=== PATIENT | male | born 1960 | race Hispanic/Latino ===

== ENCOUNTER → 2017-08-30 | Outpatient (CLI) | payer OTHER | END | disposition home or self-care (01) | LOC: RAH 08:15 | PROVIDERS: ATTEND Nurse Practitioner Family | DX: R06.00 Dyspnea, unspecified (principal); E78.2 Mixed hyperlipidemia; F41.9 Anxiety disorder, unspecified; E11.9 Type 2 diabetes mellitus without complications | CPT/HCPCS: 71046 ==

== ENCOUNTER 2019-10-03 00:05 | Inpatient (IN) | payer OTHER, BC ==
[~2019-10-03] VITALS: Ht 165.1 cm; Wt 83.0 kg
[2019-10-03] MEDS ORDERED: CEFTRIAXONE SODIUM 1 GM ONE (01:04)
[2019-10-03] MEDS ORDERED: LEVOFLOXACIN 750 MG/D5W 150 ML 150 ML ONE (01:04)
[2019-10-03 01:05] LABS: BASOPHILS % (AUTO) 0.2 % (0.0-5.0); EOSINOPHILS % (AUTO) 2.8 % (0.0-8.0); HEMATOCRIT 41.2 % (42-54); LYMPHOCYTES % (AUTO) 11.5 % (21.0-51.0); MEAN CORPUSCULAR HEMOGLOBIN 27.5 pg (27.0-33.0); MEAN CORPUSCULAR HGB CONC 33.7 g/dL (32.0-36.0); MEAN CORPUSCULAR VOLUME 81.4 fL (79-99); MONOCYTES % (AUTO) 8.4 % (3.0-13.0); NEUTROPHILS % (AUTO) 76.6 % (40.0-77.0); PLATELET COUNT (AUTO) 205 K/uL (130-400); RED BLOOD CELL COUNT(AUTO) 5.06 MIL/uL (4.50-6.20); WHITE BLOOD COUNT (AUTO) 6.2 K/uL (4.8-10.8)
[2019-10-03] MEDS ORDERED: SODIUM CHLORIDE 0.9% 100 ML IV ONE (01:05)
[2019-10-03] MEDS ORDERED: ACETAMINOPHEN 325 MG TAB ONE (01:08)
[2019-10-03 01:09] LABS: POTASSIUM 3.2 mmol/L (3.5-5.1)
[2019-10-03 01:13] LABS: ALBUMIN 3.5 g/dL (3.5-5.0); BILIRUBIN,TOTAL 0.3 mg/dL (0.2-1.0); TOTAL PROTEIN, SERUM 7.1 g/dL (6.0-8.3)
[2019-10-03] MEDS ORDERED: SODIUM CHLORIDE 0.9% 1000ML 1,000 ML IV SCH (03:17)
[2019-10-03] MEDS ORDERED: AZITHROMYCIN 500MG+NS 250ML 250 ML IV SCH (03:30)
[2019-10-03] MEDS: DOXYCYCLINE 100MG+NS 250ML 250 ML IV SCH ×2 (03:30→16:16)
[2019-10-03] MEDS ORDERED: ONDANSETRON HCL 4 MG/2 ML VIAL IV PRN (03:30)
[2019-10-03] MEDS ORDERED: ERGOCALCIFEROL (VITAMIN D2) 50,000 UNIT CAPSULE PO SCH (03:30)
[2019-10-03 03:37] LABS: APPEARANCE,URINE Clear (CLEAR); BILIRUBIN,URINE Negative (NEGATIVE); COLOR,URINE Yellow (YELLOW); GLUCOSE, URINE (UA) Negative (NEGATIVE); KETONES,URINE Negative (NEGATIVE); LEUKOCYTE ESTERASE ,URINE Negative (NEGATIVE); NITRATE,URINE Negative (NEGATIVE); OCCULT BLOOD,URINE Negative (NEGATIVE); PH,URINE 5.5 (5.0-8.0); PROTEIN,URINE Negative (NEGATIVE)
[2019-10-03] MEDS ORDERED: METHYLPREDNISOLONE SOD SUCC 40MG/ML 1ML ONE (04:09)
[2019-10-03] MEDS ORDERED: ACETYLCYSTEINE 600 MG CAPSULE ONE (04:10)
[2019-10-03] MEDS ORDERED: DOXYCYCLINE 100MG+NS 250ML 250 ML IV ONE (04:10)
[2019-10-03] MEDS ORDERED: AZITHROMYCIN 500MG+NS 250ML 250 ML IV ONE (04:10)
[2019-10-03] MEDS ORDERED: ERGOCALCIFEROL (VITAMIN D2) 50,000 UNIT CAPSULE ONE (04:10)
[2019-10-03] MEDS: POTASSIUM CHLORIDE 20 MEQ ERTAB PO SCH (04:45)
[2019-10-03] MEDS ORDERED: POTASSIUM CHLORIDE 20 MEQ ERTAB PO ONE (04:54)
[2019-10-03] MEDS ORDERED: ONDANSETRON HCL 4 MG/2 ML VIAL ONE (05:00)
[2019-10-03 05:20] VITALS: BP 129/84
[2019-10-03] MEDS ORDERED: CALCIUM CARBON 500MG CHEW TAB PO PRN (05:30)
[2019-10-03 08:00] VITALS: BP 134/76
[2019-10-03] MEDS ORDERED: METHYLPREDNISOLONE SOD SUCC 40MG/ML 1ML IVP SCH (09:00)
[2019-10-03] MEDS: ACETYLCYSTEINE 600 MG CAPSULE PO SCH ×2 (09:00→20:50)
[2019-10-03] MEDS ORDERED: DULO60CA64 PO (09:23)
[2019-10-03] MEDS ORDERED: TRAZ-185 PO (09:23)
[2019-10-03] MEDS ORDERED: ASCO500T10 PO (09:23)
[2019-10-03] MEDS ORDERED: GABA-529 PO (09:23)
[2019-10-03] MEDS ORDERED: DOCU-116 PO (09:23)
[2019-10-03] MEDS ORDERED: PSYL426P4 PO (09:23)
[2019-10-03] MEDS ORDERED: POLY17PO4 PO (09:23)
[2019-10-03] MEDS ORDERED: VITA400T9 PO (09:23)
[2019-10-03] MEDS ORDERED: OMEP20CA12 PO (09:23)
[2019-10-03] MEDS: ZINC SULFATE 220 CAPSULE PO SCH (09:37)
[2019-10-03] MEDS: FAMOTIDINE 20MG TAB 20 MG TAB PO SCH ×2 (09:37→20:50)
[2019-10-03] MEDS: ASCORBIC ACID 500 MG TAB PO SCH (09:37)
[2019-10-03] MEDS: ENOXAPARIN SODIUM 40 MG/0.4 ML SYRINGE SQ SCH (09:38)
[2019-10-03] MEDS: ACETAMINOPHEN 325 MG TAB PO PRN ×2 (10:24→20:50)
[2019-10-03 10:53] LABS: CRP QUANTITATIVE 34.6 mg/L (0.00-9.0)
--- NOTE | 2019-10-03 11:39 | NUR ---
CHART CHECK COMPLETED. Pt IS A 59 Y.O. MALE ADMITTED SECONDARY TO DYSPNEA AND COVID+. Pt HAS A PAST MEDICAL HISTORY SIGNIFICANT FOR DM, HTN, HLD. Pt CURRENTLY ON REGULAR TEXTURE,THIN LIQUID DIET (CONSISTENT CARB). PLEASE REQUEST FORMAL SKILLED SPEECH/SWALLOW EVALUATION IF Pt PRESENTS WITH +S/S OF ASPIRATION SUCH COUGH RESPONSE, THROAT CLEAR, OR WET VOCAL QUALITY DURING P.O. Addendum: 10/03/19 at 1144 by MG VENEGAS, [facility] Amended: Links added.
[2019-10-03 12:06] VITALS: BP 121/64
[2019-10-03 14:30] VITALS: BP 129/78
--- NOTE | 2019-10-03 17:59 | NUR ---
cm note pt lives with spouse, independent with adls/ambulation, no dme. dc plan is back to home at ok. no dc needs. Addendum: 10/03/19 at 1807 by FABBY BLUM CM Amended: Links added.
[2019-10-03] MEDS ORDERED: DEXTROSE 50%-WATER 50 ML DISP.SYRIN IV PRN (18:45)
[2019-10-03] MEDS ORDERED: GLUCAGON 1MG KIT 1 MG ML IM PRN (18:45)
[2019-10-03 20:00] VITALS: BP 125/79
[2019-10-03] MEDS: INSULIN HUMULIN R 100 UNIT/ML 3ML SQ SCH (20:34)
[2019-10-04] VITALS: BP 126/69
[2019-10-04] MEDS: DOXYCYCLINE 100MG+NS 250ML 250 ML IV SCH ×2 (03:53→15:23)
[2019-10-04] MEDS: POTASSIUM CHLORIDE 20 MEQ ERTAB PO SCH (03:53)
[2019-10-04] MEDS: ACETAMINOPHEN 325 MG TAB PO PRN ×3 (03:54→15:52)
[2019-10-04 03:56] LABS: BASOPHILS % (AUTO) 0.1 % (0.0-5.0); EOSINOPHILS % (AUTO) 1.9 % (0.0-8.0); HEMATOCRIT 42.5 % (42-54); LYMPHOCYTES % (AUTO) 8.4 % (21.0-51.0); MEAN CORPUSCULAR HEMOGLOBIN 26.8 pg (27.0-33.0); MEAN CORPUSCULAR HGB CONC 32.7 g/dL (32.0-36.0); MONOCYTES % (AUTO) 8.7 % (3.0-13.0); NEUTROPHILS % (AUTO) 80.6 % (40.0-77.0); PLATELET COUNT (AUTO) 229 K/uL (130-400); RED BLOOD CELL COUNT(AUTO) 5.18 MIL/uL (4.50-6.20)
[2019-10-04 04:00] VITALS: BP 133/83
[2019-10-04 04:05] LABS: ALANINE AMINOTRANSFERASE 25 U/L (12-78); ALBUMIN 3.6 g/dL (3.5-5.0); ASPARTATE AMINOTRANSFERASE 15 U/L (10-37); BILIRUBIN,TOTAL 0.3 mg/dL (0.2-1.0); CARBON DIOXIDE 30 mmol/L (21-32); CHLORIDE 102 mmol/L (101-111); GLOMERULAR FILTR. RATE CALC 81 mL/min (>60); GLUCOSE,RANDOM 144 mg/dL (70-105); LACTATE DEHYDROGENASE 166 U/L (81-234); POTASSIUM 4.4 mmol/L (3.5-5.1); SODIUM SERUM 137 mmol/L (136-145); TOTAL PROTEIN, SERUM 7.5 g/dL (6.0-8.3); UREA NITROGEN, BLOOD 20 mg/dL (7-18)
[2019-10-04] MEDS: INSULIN HUMULIN R 100 UNIT/ML 3ML SQ SCH ×4 (05:28→20:45)
[2019-10-04] MEDS ORDERED: PHARMACY COMMUNICATION MISC SCH (08:15)
[2019-10-04] MEDS: ASCORBIC ACID 500 MG TAB PO SCH (08:54)
[2019-10-04] MEDS: ZINC SULFATE 220 CAPSULE PO SCH (08:54)
[2019-10-04] MEDS: FAMOTIDINE 20MG TAB 20 MG TAB PO SCH (08:54)
[2019-10-04] MEDS: ENOXAPARIN SODIUM 40 MG/0.4 ML SYRINGE SQ SCH (08:56)
[2019-10-04] MEDS: AZITHROMYCIN 500MG+NS 250ML 250 ML IV SCH (08:57)
[2019-10-04 09:19] VITALS: BP 144/78
[2019-10-04] MEDS: ACETYLCYSTEINE 20% 200MG/ML 4ML VIAL PO SCH ×2 (09:19→20:59)
[2019-10-04] MEDS ORDERED: POLYETHYLENE GLYCOL 3350 17 GM POWD.PACK PO PRN (09:30)
[2019-10-04 12:32] VITALS: BP 137/78
[2019-10-04] MEDS ORDERED: GABAPENTIN 300 MG CAPSULE PO PRN (14:00)
[2019-10-04] MEDS ORDERED: ZINC220C6 PO (15:45)
[2019-10-04] MEDS ORDERED: ASCO500T20 PO (15:45)
[2019-10-04] MEDS ORDERED: AZIT250T9 PO (15:50)
[2019-10-04] MEDS ORDERED: DEXA6TAB7 PO (15:50)
--- NOTE | 2019-10-04 17:27 | NUR ---
Patient's discharge postponed due to patient being febrile. Primary team made aware, blood cultures ordered. Patient given IV doxy at 1730. Will continue to monitor
[2019-10-04 18:37] VITALS: BP 126/74
[2019-10-04] MEDS: DULOXETINE HCL 30 MG CAP PO SCH (20:59)
[2019-10-04 21:07] VITALS: BP 114/66
[2019-10-05] VITALS (7 sets, daily range): BP systolic 118–141; BP diastolic 52–92
[2019-10-05] MEDS: DOXYCYCLINE 100MG+NS 250ML 250 ML IV SCH ×2 (02:32→14:50)
[2019-10-05 04:30] LABS: BASOPHILS % (AUTO) 0.1 % (0.0-5.0); HEMATOCRIT 40.8 % (42-54); LYMPHOCYTES % (AUTO) 7.2 % (21.0-51.0); MEAN CORPUSCULAR HEMOGLOBIN 27.1 pg (27.0-33.0); MEAN CORPUSCULAR HGB CONC 33.3 g/dL (32.0-36.0); MEAN CORPUSCULAR VOLUME 81.4 fL (79-99); MONOCYTES % (AUTO) 7.5 % (3.0-13.0); NEUTROPHILS % (AUTO) 84.6 % (40.0-77.0); PLATELET COUNT (AUTO) 205 K/uL (130-400); RED BLOOD CELL COUNT(AUTO) 5.01 MIL/uL (4.50-6.20); RED CELL DISTRIBUTION WIDTH 12.9 % (11.0-15.5); WHITE BLOOD COUNT (AUTO) 7.7 K/uL (4.8-10.8)
[2019-10-05 04:50] LABS: ALBUMIN 3.4 g/dL (3.5-5.0); BILIRUBIN,TOTAL 0.5 mg/dL (0.2-1.0); POTASSIUM 3.6 mmol/L (3.5-5.1); TOTAL PROTEIN, SERUM 7.4 g/dL (6.0-8.3)
[2019-10-05] MEDS: INSULIN HUMULIN R 100 UNIT/ML 3ML SQ SCH ×5 (05:52→20:41)
--- NOTE | 2019-10-05 06:26 | NUR ---
Pts temp reassessed throughout the night; @2107 -101.6, @0056 - 99.6 and @0400 - 99.3; pt stated he feels better than he did yesterday and he was able to get rest. Bambi RN
[2019-10-05] MEDS: ACETYLCYSTEINE 20% 200MG/ML 4ML VIAL PO SCH ×2 (08:31→20:41)
[2019-10-05] MEDS: PANTOPRAZOLE SODIUM 40 MG TABLET.DR PO SCH (08:31)
[2019-10-05] MEDS: DULOXETINE HCL 30 MG CAP PO SCH ×2 (08:31→20:41)
[2019-10-05] MEDS: AZITHROMYCIN 500MG+NS 250ML 250 ML IV SCH (08:31)
[2019-10-05] MEDS: ASCORBIC ACID 500 MG TAB PO SCH (08:31)
[2019-10-05] MEDS: ZINC SULFATE 220 CAPSULE PO SCH (08:31)
[2019-10-05] MEDS: ENOXAPARIN SODIUM 40 MG/0.4 ML SYRINGE SQ SCH (08:46)
[2019-10-05] MEDS: ACETAMINOPHEN 325 MG TAB PO PRN ×2 (08:48→21:00)
[2019-10-05] MEDS ORDERED: TRAMADOL HCL 50 MG TABLET PO PRN (12:30)
[2019-10-05] MEDS ORDERED: INSULIN GLARGINE 100 UNITS/ML 10 ML VIAL SQ SCH (21:00)
--- NOTE | 2019-10-05 21:00 | NUR ---
Pts temp =m100.3 and pt with c/o back and right leg/damon pain; pt administered 650mg PO Tylenol at this time. TY Asher
[2019-10-06 00:19] VITALS: BP 129/83
[2019-10-06] MEDS: DOXYCYCLINE 100MG+NS 250ML 250 ML IV SCH ×2 (03:30→15:30)
[2019-10-06] MEDS: INSULIN HUMULIN R 100 UNIT/ML 3ML SQ SCH ×6 (06:00→17:00)
[2019-10-06 06:08] LABS: BASOPHILS % (AUTO) 0.2 % (0.0-5.0); HEMATOCRIT 39.7 % (42-54); LYMPHOCYTES % (AUTO) 5.8 % (21.0-51.0); MEAN CORPUSCULAR HGB CONC 33.2 g/dL (32.0-36.0); MEAN CORPUSCULAR VOLUME 81.2 fL (79-99); MONOCYTES % (AUTO) 7.3 % (3.0-13.0); NEUTROPHILS % (AUTO) 86.1 % (40.0-77.0); PLATELET COUNT (AUTO) 183 K/uL (130-400); RED BLOOD CELL COUNT(AUTO) 4.89 MIL/uL (4.50-6.20); RED CELL DISTRIBUTION WIDTH 12.6 % (11.0-15.5); WHITE BLOOD COUNT (AUTO) 6.4 K/uL (4.8-10.8)
[2019-10-06] MEDS: ACETAMINOPHEN 325 MG TAB PO PRN ×2 (06:24→13:48)
[2019-10-06 06:26] VITALS: BP 146/77
[2019-10-06 06:32] LABS: BILIRUBIN,TOTAL 0.6 mg/dL (0.2-1.0); CRP QUANTITATIVE 130.3 mg/L (0.00-9.0); POTASSIUM 3.8 mmol/L (3.5-5.1); TOTAL PROTEIN, SERUM 6.8 g/dL (6.0-8.3)
[2019-10-06 08:00] VITALS: BP 131/74
[2019-10-06] MEDS: ZINC SULFATE 220 CAPSULE PO SCH (08:34)
[2019-10-06] MEDS: PANTOPRAZOLE SODIUM 40 MG TABLET.DR PO SCH (08:34)
[2019-10-06] MEDS: ASCORBIC ACID 500 MG TAB PO SCH (08:34)
[2019-10-06] MEDS: ENOXAPARIN SODIUM 40 MG/0.4 ML SYRINGE SQ SCH (08:35)
[2019-10-06] MEDS: DULOXETINE HCL 30 MG CAP PO SCH (08:36)
[2019-10-06] MEDS: ACETYLCYSTEINE 20% 200MG/ML 4ML VIAL PO SCH (08:39)
[2019-10-06] MEDS: AZITHROMYCIN 500MG+NS 250ML 250 ML IV SCH (09:00)
[2019-10-06 12:00] VITALS: BP 138/83
[2019-10-06 16:00] VITALS: BP 128/79
--- NOTE | 2019-10-06 18:45 | NUR ---
Discharge given to patient and signed. pt transported via w/c to front where picked up patient. pt vs stable. no complaints offered
== END 2019-10-06 18:45 | disposition home or self-care (01) | DRG 177 ==
LOC: EDH 00:05 → OBSVTOIN 03:17 → EDHIP 03:17 → 4AH 05:16
PROVIDERS: ADMIT Internal Medicine; ATTEND Internal Medicine
DX: U07.1 COVID-19 (principal); J12.89 Other viral pneumonia; I10 Essential (primary) hypertension; E78.5 Hyperlipidemia, unspecified; E11.9 Type 2 diabetes mellitus without complications; E66.9 Obesity, unspecified; E87.6 Hypokalemia; Z87.891 Personal history of nicotine dependence; Z68.30 Body mass index [BMI] 30.0-30.9, adult
CPT/HCPCS: 36415; 71045; 71250; 80053; 81003; 82728; 82948; 83615; 83880; 84145; 85025; 85378; 86140; 87040; 87426; 93005; G0378; J0456; J0696; J1650; J1815; J1956; J2405; J2920; J3490; J7608